=== PATIENT | male | born 1990 | race African-American/Black ===

== ENCOUNTER 2019-07-14 15:39 | Emergency (ER) | payer MEDICAID, OTHER ==
[2019-07-14 16:13] VITALS: BP 151/87
--- NOTE | 2019-07-14 16:37 | UC ---
Skin Complaint HPI - HPI Summary HPI Summary: 29 year old male with no PMH, no wound healing complications. presents with pain to right 4th finger. States several days ago noted white head, was "popped" and pus expressed. NOted afterwards "hard" area, redness spreading on fingertip. NO further drainage, patient bites fingernails, all very short. no recent hospitalizations. no recent ABX use - History of Current Complaint Chief Complaint: UCUpperExtremity Time Seen by Provider: 07/14/19 16:18 Stated Complaint: POSS FINGER INFECTION Hx Obtained From: Patient, Family/[employer] Work[employer] - mother Onset/Duration: Sudden Onset, Lasting Days Onset Severity: Mild Current Severity: Mild Pain Intensity: 3 Pain Scale Used: 0-10 Numeric Location: Discrete - right finger Character: Swelling, Redness, Raised, Painful Aggravating Factor(s): Touch Associated Signs & Symptoms: Positive: Drainage, Tenderness, Red Streaks - Allergy/Home Medications Allergies/Adverse Reactions: Allergies Allergy/AdvReac Type Severity Reaction Status Date / Time No Known Allergies Allergy Verified 12/10/13 06:28 Home Medications: Home Medications PARoxetine HCL TAB* [Paxil TAB*] 1 tab PO DAILY 07/14/19 [History Confirmed 06/24] PMH/Surg Hx/FS Hx/Imm Hx Previously Healthy: Yes - denies PMH - Surgical History Surgical History: None - Family History Known Family History: Positive: Non-Contributory - Social History Alcohol Use: None Substance Use Type: None Smoking Status (MU): Heavy Every Day Tobacco Smoker Review of Systems All Other Systems Reviewed And Are Negative: Yes Constitutional: Negative: Fever, Chills, Fatigue Skin: Positive: Other - redness. Negative: Rash Motor: Negative: Decreased ROM, Weakness Neurovascular: Negative: Decreased Sensation Neurological: Positive: Negative Is Patient Immunocompromised?: No Physical Exam Triage Information Reviewed: Yes Appearance: Well-Appearing, No Pain Distress, Well-Nourished Vital Signs: Initial Vital Signs Temp 99.4 F 07/14/19 16:08 Pulse 58 07/14/19 16:08 Resp 16 07/14/19 16:08 BP 151/87 07/14/19 16:08 Pulse Ox 100 07/14/19 16:08 Vital Signs Reviewed: Yes Eyes: Positive: Conjunctiva Clear ENT: Positive: Hearing grossly normal Musculoskeletal: Positive: Strength Intact - RIght fourth finger, ROM Intact - RIght fourth finger, Edema @ - distal to DIP R 4th finger Neurological: Positive: Alert, Other: - SITLT RIght fourth finger Psychological Exam: Normal Skin: Positive: Other - mild erythema, edema noted at right 4th finger, lateral to nailbed. mild TTP, full movement DIP, PIP, MCP without pain, no joint involvement noted. No open wounds, sores, unable to express any fluid. Course/Dx - Course Course Of Treatment: Cellulitis, finger - Soaks 3-4 times daily for 10-20 minutes. Push back finger away from nail - ANtibiotics as prescribed, 4 times a day for 7 days - Return if worse in 24 hours, or no change/ worse in 2 days - TYlenol/ motrin as needed for pain - Return with decreased movement of joints, fever > 101, chills. - Keep area covered - Diagnoses Provider Diagnosis: Cellulitis of fingernail of left hand Discharge ED - Sign-Out/Discharge Documenting (check all that apply): Patient Departure All imaging exams completed and their final reports reviewed: No Studies - Discharge Plan Condition: Good Disposition: HOME Prescriptions: Cephalexin CAP* [Keflex CAP*] 500 mg PO QID #28 cap Patient Education Materials: Cellulitis (ED) Referrals: Bernard WEAVER,Rian Javier [Primary Care Provider] - Additional Instructions: Cellulitis, finger - Soaks 3-4 times daily for 10-20 minutes. Push back finger away from nail - ANtibiotics as prescribed, 4 times a day for 7 days - Return if worse in 24 hours, or no change/ worse in 2 days - TYlenol/ motrin as needed for pain - Return with decreased movement of joints, fever > 101, chills. - Keep area covered - Billing Disposition and Condition Condition: GOOD Disposition: Home - Attestation Statements Provider Attestation: I was available for consult. This patient was seen by the RUMA. The patient was not presented to , seen by or examined by mt -Vida Anderson MD
== END 2019-07-14 16:43 | disposition home or self-care (01) ==
LOC: UCEAST 15:39
DX: L03.012 Cellulitis of left finger (principal); F17.210 Nicotine dependence, cigarettes, uncomplicated
CPT/HCPCS: 99202; G0463

== ENCOUNTER 2019-09-18 20:52 | Emergency (ER) | payer OTHER ==
[2019-09-18 20:57] VITALS: BP 149/88
--- NOTE | 2019-09-18 22:03 | ED ---
Throat Pain/Nasal Congestion - HPI Summary HPI Summary: 29 year old male presents with dental pain for the past couple days. States he has follow-up with the dentist but was unable to make appointment. He states he has a follow up next week. He is not able to deal with the pain anymore. Has been taking Tylenol ibuprofen and Excedrin without relief. He states he has a history of needing root canals. He states that his tooth has been chipping away and now is just the nerve root left. Has pain radiating to his right eye. Denies any swelling to the area. No drainage from area. No fevers. No chest pain or shortness breath. No sore throat or difficulty swallowing. Has no medical conditions. - History of Current Complaint Chief Complaint: EDDentalPain Time Seen by Provider: 09/18/19 21:22 - Allergies/Home Medications Allergies/Adverse Reactions: Allergies Allergy/AdvReac Type Severity Reaction Status Date / Time No Known Allergies Allergy Verified 09/18/19 20:57 Home Medications: Home Medications PARoxetine HCL TAB* [Paxil TAB*] 20 mg PO DAILY 09/18/19 [History Confirmed ] PMH/Surg Hx/FS Hx/Imm Hx Endocrine/Hematology History: Denies: Hx Diabetes Cardiovascular History: Denies: Hx Hypertension Respiratory History: Denies: Hx Chronic Obstructive Pulmonary Disease (COPD) Infectious Disease History: No Infectious Disease History: Denies: Traveled Outside the [place] in Last 30 Days - Family History Known Family History: Positive: Non-Contributory - Social History Alcohol Use: None Substance Use Type: Reports: None Smoking Status (MU): Light Every Day Tobacco Smoker Review of Systems Negative: Fever Positive: Dental Pain Negative: Chest Pain Negative: Shortness Of Breath All Other Systems Reviewed And Are Negative: Yes Physical Exam Triage Information Reviewed: Yes Vital Signs On Initial Exam: Initial Vitals Temp Pulse Resp BP Pulse Ox 98.7 F 62 18 149/88 98 09/18/19 20:53 09/18/19 20:53 09/18/19 20:53 09/18/19 20:53 09/18/19 20:53 Vital Signs Reviewed: Yes Appearance: Positive: Well-Appearing Skin: Positive: Warm, Dry Head/Face: Positive: Normal Head/Face Inspection Eyes: Positive: Normal, EOMI, ANGEL, Conjunctiva Clear ENT: Positive: Pharynx normal, TMs normal Dental: Positive: Gross Decay/Caries @ - 1, Other - erythema around tooth 1, no abscess Neck: Positive: Supple, Nontender, No Lymphadenopathy Respiratory/Lung Sounds: Positive: Clear to Auscultation, Breath Sounds Present Cardiovascular: Positive: Normal, RRR Musculoskeletal: Positive: Normal Neurological: Positive: Normal Psychiatric: Positive: Normal Procedures - Sedation Patient Received Moderate/Deep Sedation with Procedure: No Diagnostics - Vital Signs Vital Signs Temp Pulse Resp BP Pulse Ox 09/18/19 20:53 98.7 F 62 18 149/88 98 - Laboratory Lab Statement: Any lab studies that have been ordered have been reviewed, and results considered in the medical decision making process. EENT Course/Dx - Course Course Of Treatment: 29 year old male presents with dental pain for the past couple days. States he has follow-up with the dentist but was unable to make appointment. He states he has a follow up next week. He is not able to deal with the pain anymore. Has been taking Tylenol ibuprofen and Excedrin without relief. He states he has a history of needing root canals. He states that his tooth has been chipping away and now is just the nerve root left. Has pain radiating to his right eye. Denies any swelling to the area. No drainage from area. No fevers. No chest pain or shortness breath. No sore throat or difficulty swallowing. Has no medical conditions. On exam has tenderness over tooth 1 with cavities noted. Has mild erythema around the area. We'll treat with penicillin. Gave short course of pain medication. will have follow up with dentist. Patient understands agrees plan. - Differential Diagnoses Differential Diagnoses: Dental Abscess, Dental Caries, Fractured Tooth - Diagnoses Provider Diagnoses: Dental infection Discharge ED - Sign-Out/Discharge Documenting (check all that apply): Patient Departure - Discharge Plan Condition: Good Disposition: HOME Prescriptions: HYDROcodone/ACETAMIN 5-325 MG* [[place] 5-325 TAB*] 1 tab PO Q6H PRN #12 tab MDD 4 PRN Reason: Pain - Severe Penicillin VK TAB* [Penicillin VK 250 mg Tab*] 500 mg PO QID #27 tab Patient Education Materials: Toothache (ED) Referrals: Bernard WEAVER,Rian Javier [Primary Care Provider] - Additional Instructions: Take antibiotics: 4 times a day for 7 days, first dose given in ED Use ibuprofen every 6 hours and percocet every 6 hours for pain Avoid hard, crunchy food until seen by dentist Follow up with dentist as soon as possible Return to ED if develop fever, shortness of breath, pain with eye movement or swelling around eye - Billing Disposition and Condition Condition: GOOD Disposition: Home
[2019-09-18] MEDS: Penicillin VK TAB* 250 MG PO ONE (22:10)
[2019-09-18] MEDS: HYDROcodone/ACETAMIN 5-325 MG* 1 TAB PO ONE (22:10)
[2019-09-18] MEDS: Ketorolac INJ* 30 MG/ML 1 ML VIAL IM ONE (22:10)
== END 2019-09-18 22:20 | disposition home or self-care (01) ==
LOC: ED 20:52
DX: K04.7 Periapical abscess without sinus (principal); F17.200 Nicotine dependence, unspecified, uncomplicated; Z79.899 Other long term (current) drug therapy
CPT/HCPCS: 96372; 99282; A9270-GY; J1885